=== PATIENT | male | born 1990 | race Two or more races ===

== ENCOUNTER 2020-06-13 04:16 | Emergency (ER) | payer OTHER ==
[~2020-06-13] VITALS: Ht 175.3 cm; Wt 108.9 kg
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
[2020-06-13] MEDS ORDERED: LIDOCAINE 2%-EPI 1:100,000 30 ML VIAL ONE (04:52)
[2020-06-13] MEDS ORDERED: SODIUM BICARBONATE 5 ML VIAL ONE (04:52)
[2020-06-13] MEDS ORDERED: HYDROCODONE/APAP 5/325MG TABLET ONE (04:53)
[2020-06-13] MEDS ORDERED: ONDANSETRON 4 MG TAB.RAPDIS ONE (04:53)
[2020-06-13] MEDS ORDERED: CEPHALEXIN MONOHYDRATE 500 MG CAPSULE PO ONE ×2 (04:53→05:00)
[2020-06-13] MEDS ORDERED: TDAP [DIPH/PERTUSSIS/TET] 0.5 ML VIAL IM ONE ×2 (04:54→05:00)
[2020-06-13] MEDS ORDERED: LIDOCAINE 2%-EPI 1:100,000 30 ML VIAL TP ONE (05:00)
[2020-06-13] MEDS ORDERED: HYDROCODONE/APAP 5/325MG TABLET PO ONE (05:00)
[2020-06-13] MEDS ORDERED: ONDANSETRON 4 MG TAB.RAPDIS SL ONE (05:00)
[2020-06-13] MEDS ORDERED: SODIUM BICARBONATE 5 ML VIAL MC ONE (05:00)
--- NOTE | 2020-06-13 05:00 | NUR ---
PT RETURNED FROM CT
--- NOTE | 2020-06-13 05:09 | NUR ---
DR. BROWNLEE AT BEDSIDE FOR LAC REPAIR
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
[2020-06-13 06:17] VITALS: BP 142/69
== END 2020-06-13 06:17 | disposition home or self-care (01) ==
LOC: ER 04:20
DX: S01.01XA Laceration without foreign body of scalp, initial encounter (principal); S60.212A Contusion of left wrist, initial encounter; I10 Essential (primary) hypertension; E11.9 Type 2 diabetes mellitus without complications; V49.69XA Unspecified car occupant injured in collision with other motor vehicles in traffic accident, initial encounter; Y93.89 Activity, other specified; Y92.413 State road as the place of occurrence of the external cause; Y99.8 Other external cause status
CPT/HCPCS: 12002; 29125; 70450; 73090; 73130; 90471; 90715; 99284; A6403; J3490 ×2; Q0162